=== PATIENT | male | born 1975 | race Caucasian/White ===

== ENCOUNTER 2022-03-12 06:54 | Emergency (ER) | payer OTHER ==
[~2022-03-12] VITALS: Ht 193 cm; Wt 100.0 kg
[2022-03-12] MEDS ORDERED: AUGMENTIN 875 MG TAB PO ONE (09:30)
[2022-03-12] MEDS ORDERED: predniSONE 20 MG TAB PO ONE (09:30)
[2022-03-12] MEDS ORDERED: AMOX875T2 PO (09:45)
[2022-03-12] MEDS ORDERED: PRED20TA PO (09:45)
[2022-03-12 09:51] VITALS: BP 131/80
== END 2022-03-12 10:09 | disposition home or self-care (01) ==
LOC: M ED 06:54
DX: K02.9 Dental caries, unspecified (principal); F17.200 Nicotine dependence, unspecified, uncomplicated
CPT/HCPCS: 99283; J7512